=== PATIENT | female | born 2000 | race Caucasian/White ===

== ENCOUNTER 2022-06-29 09:07 | Emergency (ER) | payer OTHER | END 2022-06-29 11:24 | disposition home or self-care (01) | LOC: CSHERS 09:07 | DX: B34.9 Viral infection, unspecified (principal); H66.92 Otitis media, unspecified, left ear | CPT/HCPCS: 99283 ==

== ENCOUNTER 2022-07-02 13:06 | Emergency (ER) | payer OTHER ==
[2022-07-02] MEDS ORDERED: Dexamethasone 4 MG TAB ONE (13:48)
== END 2022-07-02 14:30 | disposition home or self-care (01) ==
LOC: CSHERS 13:06
DX: J02.8 Acute pharyngitis due to other specified organisms (principal); H92.02 Otalgia, left ear
CPT/HCPCS: 87081; 87430; 99283; J8540